=== PATIENT | female | born 1970 | race Caucasian/White ===

== ENCOUNTER 2016-10-03 15:10 | Emergency (ER) | payer BC ==
[2016-10-03 15:35] VITALS: BP 112/65
--- NOTE | 2016-10-03 15:46 | ED ---
Abdominal Pain/Female - HPI Summary HPI Summary: 46 year old female presents with severe LLQ pain, fever and chills. I will send her to the ER. I spoke to Kristel Elliott. - History of Current Complaint Chief Complaint: UCAbdominalPain Stated Complaint: ABD PAIN Time Seen by Provider: 10/03/16 15:42 Hx Last Menstrual Period: 08/28/16 with vas Allergies/Adverse Reactions: Allergies Allergy/AdvReac Type Severity Reaction Status Date / Time No Known Allergies Allergy Verified 10/03/16 15:35 PMH/Surg Hx/FS Hx/Imm Hx Endocrine/Hematology History: Denies: Hx Diabetes, Hx Thyroid Disease Cardiovascular History: Denies: Hx Hypertension Respiratory History: Denies: Hx Asthma, Hx Chronic Obstructive Pulmonary Disease (COPD) GI History: Denies: Hx Ulcer - Cancer History Hx Chemotherapy: No Hx Radiation Therapy: No - Surgical History Surgery Procedure, Year, and Place: WISOM TEETH EXTRACTIONS Infectious Disease History: No Infectious Disease History: Denies: Hx Clostridium Difficile, Hx Hepatitis, Hx Human Immunodeficiency Virus (HIV), Hx of Known/Suspected MRSA, Hx Shingles, Hx Tuberculosis, Hx Known/ Suspected VRE, Hx Known/Suspected VRSA, History Other Infectious Disease, Traveled Outside the [place] in Last 30 Days - Family History Known Family History: Negative: Diabetes - Social History Alcohol Use: Daily Alcohol Amount: 5 times a week Substance Use Type: Reports: None Smoking Status (MU): Light Every Day Tobacco Smoker Type: Cigarettes Amount Used/How Often: 1/2 ppd Length of Time of Smoking/Using Tobacco: 13 YRS Review of Systems Constitutional: Negative Positive: Abdominal Pain, Other - LLQ PAIN All Other Systems Reviewed And Are Negative: Yes Physical Exam Triage Information Reviewed: Yes Vital Signs On Initial Exam: Initial Vitals Temp Pulse Resp BP Pulse Ox 36.9 C 66 15 112/65 98 10/03/16 15:30 10/03/16 15:30 10/03/16 15:30 10/03/16 15:30 10/03/16 15:30 Abdomen Description: Positive: Other: - LLQ PAIN Diagnostics - Vital Signs Vital Signs Temp Pulse Resp BP Pulse Ox 10/03/16 15:30 36.9 C 66 15 112/65 98 - Laboratory Lab Statement: Any lab studies that have been ordered have been reviewed, and results considered in the medical decision making process. Abdominal Pain Fem Course/Dx - Diagnoses Provider Diagnoses: Abdominal pain Discharge - Discharge Plan Condition: Stable Disposition: AGAINST MEDICAL ADVICE Patient Education Materials: Abdominal Pain (ED) Referrals: Merced Pryor MD [Primary Care Provider] -
== END 2016-10-03 15:53 | disposition left against medical advice (07) ==
LOC: UCCORT 15:10
DX: R10.32 Left lower quadrant pain (principal); F17.210 Nicotine dependence, cigarettes, uncomplicated
CPT/HCPCS: 99212; G0463